=== PATIENT | male | born 1990 | race Asian ===

== ENCOUNTER 2016-06-23 18:49 | Emergency (ER) | payer OTHER ==
[2016-06-23] MEDS ORDERED: IPRATROPIUM/ALBUTEROL 0.5-2.5 MG/3 ML AMPUL NEB ONE (19:30)
--- NOTE | 2016-06-23 19:31 | ER Document Report ---
HPI - HPI Patient complains to provider of: cough Pain Level: 2 Context: Patient presents to the emergency department with complaints of productive cough chest tightness for the past 2-3 days. Reports history of asthma since he 18 months old. Reports he used two neb tx today without relief of symptoms. He reports no relief from the symptoms. Denies other symptoms such as fever vomiting diarrhea. Associated Symptoms: Productive cough Exacerbated by: Denies Relieved by: Denies - DERM Skin Color: Normal Past Medical History - Social History Smoking Status: Current Every Day Smoker Frequency of alcohol use: None Drug Abuse: None Family History: Reviewed & Not Pertinent Pulmonary Medical History: Reports: Hx Asthma Renal/ Medical History: Denies: Hx Peritoneal Dialysis Past Surgical History: Reports: Hx Testicular Surgery - Immunizations Hx Diphtheria, Pertussis, Tetanus Vaccination: Yes Vertical Provider Document - INFECTION CONTROL TRAVEL OUTSIDE OF THE [place] IN LAST 30 DAYS: No - RESPIRATORY O2 Sat by Pulse Oximetry: 100 Course - Vital Signs Vital signs: Temp Pulse Resp BP Pulse Ox 98.4 F 73 16 142/92 H 100 06/23/16 19:07 06/23/16 19:07 06/23/16 19:07 06/23/16 19:07 06/23/16 19:07
[2016-06-23] MEDS ORDERED: ALBUTEROL SULFATE 0.083% NEB 2.5 MG/3 ML AMPUL NEB ONE (20:28)
--- NOTE | 2016-06-23 21:23 | ER Document Report ---
ED General - General Chief Complaint: Cough Stated Complaint: COUGH Mode of Arrival: Ambulatory Information source: Patient Notes: 25-year-old male history of asthma presents with complaints of asthma exacerbation with green line productive sputum. Patient denies any fevers or chills notes symptoms have been ongoing for 3 days. Patient states that he ran out of his inhaler and his nebulizer. TRAVEL OUTSIDE OF THE [place] IN LAST 30 DAYS: No - HPI Onset: Other - 34 day duration Onset/Duration: Persistent Quality of pain: Pressure Severity: Mild Pain Level: 1 Associated symptoms: Productive cough, Shortness of breath Exacerbated by: Walking, Coughing Relieved by: Denies Similar symptoms previously: No Recently seen / treated by doctor: No - Related Data Allergies/Adverse Reactions: erythromycin lactobionate [From Erythrocin] Allergy (Verified 06/23/16 19:26) Past Medical History - Social History Smoking Status: Current Every Day Smoker Cigarette use (# per day): Yes Chew tobacco use (# tins/day): No Smoking Education Provided: Yes - Patient counselled regarding cessation for 4 minutes Frequency of alcohol use: None Drug Abuse: None Family History: Reviewed & Not Pertinent Pulmonary Medical History: Reports: Hx Asthma Renal/ Medical History: Denies: Hx Peritoneal Dialysis Past Surgical History: Reports: Hx Testicular Surgery - Immunizations Hx Diphtheria, Pertussis, Tetanus Vaccination: Yes Review of Systems - Review of Systems Notes: REVIEW OF SYSTEMS: CONSTITUTIONAL : Denies fever, chills, or sweats. Denies recent illness. EENT: Denies eye, ear, throat, or mouth pain or symptoms. Denies nasal or sinus congestion or discharge. Denies throat, tongue, or mouth swelling or difficulty swallowing. CARDIOVASCULAR: Denies chest pain. Denies palpitations or racing or irregular heart beat. Denies ankle edema. RESPIRATORY: Admits shortness breath difficult to breathing GASTROINTESTINAL: Denies abdominal pain or distention. Denies nausea, vomiting , or diarrhea. Denies blood in vomitus, stools, or per rectum. Denies black, tarry stools. Denies constipation. GENITOURINARY: Denies difficulty urinating, painful urination, burning, frequency, blood in urine, or discharge. MUSCULOSKELETAL: Denies back or neck pain or stiffness. Denies joint pain or swelling. SKIN: Denies rash, lesions or sores. HEMATOLOGIC : Denies easy bruising or bleeding. LYMPHATIC: Denies swollen, enlarged glands. NEUROLOGICAL: Denies confusion or altered mental status. Denies passing out or loss of consciousness. Denies dizziness or lightheadedness. Denies headache. Denies weakness or paralysis or loss of use of either side. Denies problems with gait or speech. Denies sensory loss, numbness, or tingling. Denies seizures. PSYCHIATRIC: Denies anxiety or stress. Denies depression, suicidal ideation, or homicidal ideation. ALL OTHER SYSTEMS REVIEWED AND NEGATIVE. Dictation was performed using [employer] voice recognition software PHYSICAL EXAMINATION: GENERAL: Well-appearing, well-nourished and in no acute distress. HEAD: Atraumatic, normocephalic. EYES: Pupils equal round and reactive to light, extraocular movements intact, sclera anicteric, conjunctiva are normal. ENT: Nares patent, oropharynx clear without exudates. Moist mucous membranes. NECK: Normal range of motion, supple without lymphadenopathy LUNGS: Breath sounds clear to auscultation bilaterally and equal. No wheezes rales or rhonchi. HEART: Regular rate and rhythm without murmurs ABDOMEN: Soft, nontender, nondistended abdomen. No guarding, no rebound. No masses appreciated. Musculoskeletal: Normal range of motion, no pitting or edema. No cyanosis. NEUROLOGICAL: Cranial nerves grossly intact. Normal speech, normal gait. Normal sensory, motor exams PSYCH: Normal mood, normal affect. SKIN: Warm, Dry, normal turgor, no rashes or lesions noted. Physical Exam - Vital signs Vitals: Temp Pulse Resp BP Pulse Ox 98.4 F 73 16 142/92 H 100 06/23/16 19:07 06/23/16 19:07 06/23/16 19:07 06/23/16 19:07 06/23/16 19:07 Course - Re-evaluation Re-evalutation: 06/23/16 21:22 Patient received 2 breathing treatments prior to my evaluation and is in no distress. I will discharge him home with nebulizer inhaler steroids and antibiotics. Patient otherwise looks well is in no distress After performing a Medical Screening Examination, I estimate there is LOW risk for ACUTE CORONARY SYNDROME, RESPIRATORY FAILURE, SEPSIS OR MENINGITIS, thus I consider the discharge disposition reasonable. The patient and I have discussed the diagnosis and risks, and we agree with discharging home with close follow- up. We also discussed returning to the Emergency Department immediately if new or worsening symptoms occur. We have discussed the symptoms which are most concerning (e.g., changing or worsening pain, trouble swallowing or breathing, neck stiffness, fever) that necessitate immediate return. - Vital Signs Vital signs: Temp Pulse Resp BP Pulse Ox 98.4 F 73 16 142/92 H 100 06/23/16 19:07 06/23/16 19:07 06/23/16 19:07 06/23/16 19:07 06/23/16 19:31 - Diagnostic Test Radiology reviewed: Image reviewed, Reports reviewed Discharge - Discharge Clinical Impression: Asthma exacerbation, Encounter for smoking cessation counseling, Productive cough Condition: Stable Disposition: HOME, SELF-CARE Instructions: Asthma ([facility]) Additional Instructions: You may only use duo nebs 3 times a day Return immediately if there are any other concerns Follow up with your physician tomorrow for further care or return to the ED IMMEDIATELY if symptoms worsen or new concerns occur Prescriptions: Doxycycline Hyclate 100 mg PO BID #14 capsule Ipratropium/Albuterol Sulfate [Duoneb 3 ml Ampul] 3 ml NEB RTQ2 #30 vial.neb Prednisone [Deltasone 20 mg Tablet] 3 tab PO DAILY 5 Days Forms: Smoking Cessation Education, Elevated Blood Pressure
[2016-06-23] MEDS ORDERED: ALBUTEROL SULFATE HFA (90 MCG/PUFF) 8 GM MDI (1 MDI/ER DISP) IH ONE (21:25)
[2016-06-23 23:05] VITALS: BP 150/94
--- NOTE | 2016-06-24 03:44 | ER Document Report ---
ED Medical Screen (RME) - General Chief Complaint: Cough Stated Complaint: COUGH Mode of Arrival: Ambulatory Notes: Patient presents to the emergency department with complaints of productive cough chest tightness for the past 2-3 days. Reports history of asthma since he 18 months old. Reports he used two neb tx today without relief of symptoms. He reports no relief from the symptoms. Denies other symptoms such as fever vomiting diarrhea. TRAVEL OUTSIDE OF THE [place] IN LAST 30 DAYS: No - Related Data Allergies/Adverse Reactions: erythromycin lactobionate [From Erythrocin] Allergy (Verified 06/23/16 19:26) Past Medical History - Social History Cigarette use (# per day): Yes Chew tobacco use (# tins/day): No Frequency of alcohol use: None Drug Abuse: None Pulmonary Medical History: Reports: Hx Asthma Renal/ Medical History: Denies: Hx Peritoneal Dialysis Past Surgical History: Reports: Hx Testicular Surgery - Immunizations Hx Diphtheria, Pertussis, Tetanus Vaccination: Yes Physical Exam - Vital signs Vitals: Temp Pulse Resp BP Pulse Ox 98.4 F 73 16 142/92 H 100 06/23/16 19:07 06/23/16 19:07 06/23/16 19:07 06/23/16 19:07 06/23/16 19:07 Course - Vital Signs Vital signs: Temp Pulse Resp BP Pulse Ox 97.9 F 88 18 150/94 H 98 06/23/16 21:48 06/23/16 21:48 06/23/16 21:48 06/23/16 21:48 06/23/16 21:48 Doctor's Discharge - Discharge Clinical Impression: Asthma exacerbation, Encounter for smoking cessation counseling, Productive cough Condition: Stable Disposition: HOME, SELF-CARE Instructions: Asthma ([facility]) Additional Instructions: You may only use duo nebs 3 times a day Return immediately if there are any other concerns Follow up with your physician tomorrow for further care or return to the ED IMMEDIATELY if symptoms worsen or new concerns occur Prescriptions: Doxycycline Hyclate 100 mg PO BID #14 capsule Ipratropium/Albuterol Sulfate [Duoneb 3 ml Ampul] 3 ml NEB RTQ2 #30 vial.neb Prednisone [Deltasone 20 mg Tablet] 3 tab PO DAILY 5 Days Forms: Elevated Blood Pressure, Smoking Cessation Education
== END 2016-06-23 21:48 | disposition home or self-care (01) ==
LOC: ER 18:49
DX: J45.901 Unspecified asthma with (acute) exacerbation (principal); R05 Cough; F17.210 Nicotine dependence, cigarettes, uncomplicated
CPT/HCPCS: 99406; 94640 ×2; 99283; 71020; J3490; J7620

== ENCOUNTER 2016-09-07 22:01 | Emergency (ER) | payer OTHER ==
[2016-09-07 23:16] LABS: ABSOLUTE EOSINOPHILS # (AUTO) 0.2 10^3/uL (0.0-0.6); ABSOLUTE LYMPHOCYTES (AUTO) 2.9 10^3/uL (0.5-4.7); ABSOLUTE MONOCYTES (AUTO) 0.9 10^3/uL (0.1-1.4); ABSOLUTE NEUT (AUTO) 5.6 10^3/uL (1.7-8.2); BASOPHILS % (AUTO) 0.3 % (0-2); HEMATOCRIT 45.1 % (37.9-51.0); HEMOGLOBIN 15.6 g/dL (13.5-17.0); HGB HCT DIFFERENCE 1.7; MEAN CORPUSCULAR HEMOGLOBIN 30.8 pg (27.0-33.4); MEAN CORPUSCULAR HGB CONC 34.4 g/dL (32.0-36.0); MEAN CORPUSCULAR VOLUME 89 fl (80-97); RED BLOOD COUNT 5.05 10^6/uL (4.35-5.55); RED CELL DISTRIBUTION WIDTH 12.8 % (11.5-14.0); SEGMENTED NEUTROPHILS % (AUTO) 58.7 % (42-78); WHITE BLOOD COUNT 9.5 10^3/uL (4.0-10.5)
[2016-09-07 23:20] LABS: AMORPHOUS SEDIMENT,URINE TRACE /HPF; APPEARANCE,URINE CLEAR; BILIRUBIN,URINE NEGATIVE (NEGATIVE); GLUCOSE, URINE NEGATIVE (NEGATIVE); KETONES,URINE NEGATIVE (NEGATIVE); LEUKOCYTE ESTERASE,URINE NEGATIVE (NEGATIVE); NITRITE,URINE NEGATIVE (NEGATIVE); PROTEIN,URINE NEGATIVE (NEGATIVE); URINE SPECIFIC GRAVITY 1.031
[2016-09-07 23:38] LABS: ALANINE AMINOTRANSFERASE 34 U/L (21-72); ALBUMIN 4.3 g/dL (3.5-5.0); ALKALINE PHOSPHATASE 58 U/L (38-126); ANION GAP 11 (5-19); ASPARTATE AMINO TRANSFERASE 18 U/L (17-59); BILIRUBIN,DIRECT 0.3 mg/dL (0.0-0.4); BILIRUBIN,TOTAL 0.6 mg/dL (0.2-1.3); BLOOD UREA NITROGEN 16 mg/dL (7-20); CALCIUM 9.9 mg/dL (8.4-10.2); CARBON DIOXIDE 26 mmol/L (22-30); CHLORIDE 104 mmol/L (98-107); CREATININE RESULT 1.14 mg/dL (0.52-1.25); GLUCOSE 80 mg/dL (75-110); LIPASE 45.6 U/L (23-300); POTASSIUM 4.2 mmol/L (3.6-5.0); SODIUM 141.2 mmol/L (137-145); TOTAL PROTEIN 6.9 g/dL (6.3-8.2)
[2016-09-08] MEDS ORDERED: IBUPROFEN 600 MG TABLET PO ONE (02:11)
[2016-09-08] MEDS ORDERED: HYDROCODONE/ACETAMINOPHEN 5-325 MG TABLET PO ONE (02:12)
--- NOTE | 2016-09-08 02:14 | ER Document Report ---
ED General - General Chief Complaint: Groin Pain Stated Complaint: UPPER GROIN PAIN,LOWER ABDOMINAL PAIN Time Seen by Provider: 09/08/16 01:52 Notes: Patient is a 25-year-old male who comes emergency department for chief complaint of pain in his left groin area. Symptoms have been present for 2 days and are worsening. He states he can barely move without the area hurting significantly. He cannot recall any injury, he denies noticing any swelling or redness to the area, he denies history of the same. He denies history of kidney stones, denies flank pain, abdominal pain, nausea/vomiting, fever or chills. TRAVEL OUTSIDE OF THE [place] IN LAST 30 DAYS: No - Related Data Allergies/Adverse Reactions: erythromycin lactobionate [From Erythrocin] Allergy (Verified 09/08/16 01:40) Past Medical History - General Information source: Patient - Social History Smoking Status: Current Every Day Smoker Chew tobacco use (# tins/day): No Frequency of alcohol use: Rare Drug Abuse: None Lives with: Family Family History: Reviewed & Not Pertinent Patient has suicidal ideation: No Patient has homicidal ideation: No - Past Medical History Cardiac Medical History: Reports: Hx Hypertension - diet controlled Pulmonary Medical History: Reports: Hx Asthma Renal/ Medical History: Denies: Hx Peritoneal Dialysis Past Surgical History: Reports: Hx Testicular Surgery - Immunizations Hx Diphtheria, Pertussis, Tetanus Vaccination: Yes Review of Systems - Review of Systems Constitutional: No symptoms reported EENT: No symptoms reported Cardiovascular: No symptoms reported Respiratory: No symptoms reported Gastrointestinal: See HPI Genitourinary: See HPI Male Genitourinary: See HPI Musculoskeletal: See HPI Skin: No symptoms reported Hematologic/Lymphatic: No symptoms reported Neurological/Psychological: No symptoms reported Physical Exam - Vital signs Vitals: Temp Pulse Resp BP Pulse Ox 98.1 F 79 20 150/73 H 99 09/07/16 22:38 09/07/16 22:38 09/07/16 22:38 09/07/16 22:38 09/07/16 22:38 Interpretation: Normal - General General appearance: Appears well, Alert In distress: None - Patient is in no distress, he has some pain with movement - HEENT Head: Normocephalic, Atraumatic Eyes: Normal Conjunctiva: Normal Extraocular movements intact: Yes Eyelashes: Normal Pupils: PERRL - Respiratory Respiratory status: No respiratory distress Chest status: Nontender Breath sounds: Normal Chest palpation: Normal - Cardiovascular Rhythm: Regular Heart sounds: Normal auscultation Murmur: No - Abdominal Inspection: Normal Distension: No distension Bowel sounds: Normal Tenderness: Nontender. No: Tender, Guarding - Abdomen is completely nontender Organomegaly: No organomegaly - Genitourinary Inspection: Normal Tenderness: Nontender Cremasteric reflex: Normal. No: Right reflex absent, Left reflex absent Scrotum: Normal, Swelling. No: Redness, Hot to touch - Back Back: Normal, Nontender - Extremities General upper extremity: Normal inspection, Nontender, Normal color, Normal ROM , Normal temperature General lower extremity: Other - There is tenderness in the left inguinal area extending towards the proximal thigh, no hernia, no erythema, no lymphadenopathy , no induration, no other abnormality noted. Tenderness with performing lifting motion of the leg, range of motion is intact although with pain, normal distal neurovascular exam - Neurological Neuro grossly intact: Yes Cognition: Normal Orientation: AAOx4 [place] Coma Scale Eye Opening: Spontaneous [place] Coma Scale Verbal: Oriented [place] Coma Scale Motor: Obeys Commands [place] Coma Scale Total: 15 Speech: Normal Motor strength normal: LUE, RUE, LLE, RLE Sensory: Normal - Psychological Associated symptoms: Normal affect, Normal mood - Skin Skin Temperature: Warm Skin Moisture: Dry Skin Color: Normal Course - Re-evaluation Re-evalutation: Hip x-ray performed and is negative. Labs from triage reviewed and show no concerning abnormalities. No evidence of hernia, infection, lymphadenopathy. Examination is consistent with a musculoskeletal source of patient's symptoms. Treating accordingly, discussed follow-up, referral, return precautions. Patient and state understanding and agreement. - Vital Signs Vital signs: Temp Pulse Resp BP Pulse Ox 97.8 F 63 18 146/86 H 97 09/08/16 03:42 09/08/16 03:42 09/08/16 03:42 09/08/16 03:42 09/08/16 03:42 - Laboratory Result Diagrams: 09/07/16 22:55 09/07/16 22:55 Laboratory results interpreted by me: 09/07/16 23:00 Urine Urobilinogen 4.0 H Discharge - Discharge Clinical Impression: Left groin pain Condition: Stable Disposition: HOME, SELF-CARE Additional Instructions: Examination is most consistent with pain of the hip with thigh strain. Take the prescribed medications as directed, apply ice to the area, probably pill up under the leg at night, but pillows to sit on to straighten out the leg when sitting. Follow-up with orthopedics if symptoms continue. Return to emergency department for any concerning or worsening symptoms including severe pain, swelling, redness, fever, vomiting or any other concerning symptoms. Prescriptions: Methocarbamol [Robaxin 500 mg Tablet] 500 mg PO QID PRN #20 tablet PRN Reason: Naproxen 500 mg PO BID #20 tablet Forms: Return to Work Referrals: FERDINAND THOMAS MD [ACTIVE STAFF] - Follow up as needed
--- NOTE | 2016-09-08 03:01 | RADIOLOGY REPORT (SQ) ---
EXAM DESCRIPTION: HIP LEFT AP/LATERAL COMPLETED DATE/TIME: 09/08/2016 2:46 am REASON FOR STUDY: left hip pain COMPARISON: None. NUMBER OF VIEWS: Two views. TECHNIQUE: AP pelvis and additional frog-leg view of the left hip. LIMITATIONS: None. FINDINGS: MINERALIZATION: Normal. LEFT HIP: No fracture or dislocation. No worrisome bone lesions. RIGHT HIP: No fracture or dislocation. No worrisome bone lesions. PUBIS AND ISCHIUM: No fracture. PELVIS: No fracture. SACRUM: No fracture or dislocation. No worrisome bone lesions. LOWER LUMBAR SPINE: No fracture or dislocation. No worrisome bone lesions. No significant disc disea se. SOFT TISSUES: No findings. OTHER: No other significant finding. IMPRESSION: NEGATIVE STUDY OF THE LEFT HIP AND PELVIS. NO RADIOGRAPHIC EVIDENCE OF ACUTE INJURY. TECHNICAL DOCUMENTATION: JOB ID: [id number] [employer]- All Rights Reserved
[2016-09-08] MEDS ORDERED: HYDROCODONE/ACETAMINOPHEN 5-325 MG 6 TAB/DSPK PO PRN (03:23)
[2016-09-08 03:49] VITALS: BP 146/86
== END 2016-09-08 03:47 | disposition home or self-care (01) ==
LOC: ER 22:01
DX: R10.32 Left lower quadrant pain (principal); F17.200 Nicotine dependence, unspecified, uncomplicated; I10 Essential (primary) hypertension
CPT/HCPCS: 36415; 80053; 81001; 83690; 85025; 99284

== ENCOUNTER 2016-12-09 14:34 | Emergency (ER) | payer OTHER ==
[2016-12-09 15:02] VITALS: BP 156/102
--- NOTE | 2016-12-09 15:04 | ER Document Report ---
ED Burn/Smoke/Toxic Fumes - General Chief Complaint: Burn Stated Complaint: RIGHT HAND BURN Time Seen by Provider: 12/09/16 15:00 Notes: The patient is a 26-year-old male who presents with right hand pain after he burned it on grease [facility] today while he was working. He rinsed it under cold water and is now noticing some blistering. He denies numbness, tingling, open wounds or difficulty bending his fingers. TRAVEL OUTSIDE OF THE [place] IN LAST 30 DAYS: No - Related Data Allergies/Adverse Reactions: erythromycin lactobionate [From Erythrocin] Allergy (Verified 12/09/16 14:59) Home Medications: Current Home Medications No Home Medications 12/09/16 [History] Past Medical History - General Information source: Patient - Social History Smoking Status: Current Every Day Smoker Chew tobacco use (# tins/day): No Frequency of alcohol use: Social Family History: Reviewed & Not Pertinent Patient has suicidal ideation: No Patient has homicidal ideation: No - Past Medical History Cardiac Medical History: Reports: Hx Hypertension - diet controlled Pulmonary Medical History: Reports: Hx Asthma Renal/ Medical History: Denies: Hx Peritoneal Dialysis Past Surgical History: Reports: Hx Testicular Surgery - Immunizations Hx Diphtheria, Pertussis, Tetanus Vaccination: Yes Review of Systems - Review of Systems Notes: REVIEW OF SYSTEMS: CONSTITUTIONAL: -fevers, -chills EENT: -eye pain, -difficulty swallowing, -nasal congestion CARDIOVASCULAR:-chest pain, -syncope. RESPIRATORY: -cough, -SOB GASTROINTESTINAL: -abdominal pain, - nausea, -vomiting, -diarrhea GENITOURINARY: -dysuria, -hematuria MUSCULOSKELETAL: -back pain, -neck pain SKIN: +right hand young HEMATOLOGIC: -easy bruising or bleeding. LYMPHATIC: -swollen, enlarged glands. NEUROLOGICAL: -altered mental status or loss of consciousness, -headache, - neurologic symptoms PSYCHIATRIC: -anxiety, -depression. ALL OTHER SYSTEMS REVIEWED AND NEGATIVE. Physical Exam - Vital signs Vitals: Temp Pulse Resp BP Pulse Ox 97.2 F 74 18 156/102 H 99 12/09/16 14:59 12/09/16 14:59 12/09/16 14:59 12/09/16 14:59 12/09/16 14:59 - Notes Notes: PHYSICAL EXAMINATION: GENERAL: Well-appearing, well-nourished and in no acute distress. HEAD: Atraumatic, normocephalic. EYES: Pupils equal round and reactive to light, extraocular movements intact, sclera anicteric, conjunctiva are normal. ENT: nares patent, oropharynx clear without exudates. Moist mucous membranes. NECK: Normal range of motion, supple without lymphadenopathy LUNGS: Breath sounds clear to auscultation bilaterally and equal. No wheezes rales or rhonchi. HEART: Regular rate and rhythm without murmurs ABDOMEN: Soft, nontender, normoactive bowel sounds. No guarding, no rebound. No masses appreciated. EXTREMITIES: Normal range of motion, no pitting or edema. No cyanosis. NEUROLOGICAL: Cranial nerves grossly intact. Normal speech, normal gait. Normal sensory and motor exams. PSYCH: Normal mood, normal affect. SKIN: Erythema and small areas of blisters over dorsal aspect of right hand, no circumferential young, brisk capillary refill Course - Re-evaluation Re-evalutation: Pt has superficial young to dorsal surface of hand. No circumferential young. Instructed him to begin bacitracin and aloe vera to help with his young. No indication for emergent transfer to burn center at this time. Patient given strict return precautions and he understands. - Vital Signs Vital signs: Temp Pulse Resp BP Pulse Ox 97.2 F 74 18 156/102 H 99 12/09/16 14:59 12/09/16 14:59 12/09/16 14:59 12/09/16 14:59 12/09/16 14:59 Discharge - Discharge Clinical Impression: Burn of hand Qualifiers: Encounter type: initial encounter Burn of hand location: dorsum Laterality: right Burn degree: superficial (1st degree) Qualified Code(s): T23.161A - Burn of first degree of back of right hand, initial encounter Condition: Stable Disposition: HOME, SELF-CARE Additional Instructions: Young The seriousness of a burn is not always obvious at first. Delayed tissue damage and secondary infection may occur despite proper treatment. Proper care is very important. A burn that is third-degree may need skin grafting. Most young, however, are simply protected with dressings until healed. Keep the burn clean. If the dressing gets wet, remove it and blot the wound dry, then apply a fresh dressing. Dressings should be changed at least once daily. Soaks to remove crusting are usually started in about two days. Young in certain areas require stretching to prevent disabling tightness. Your doctor will advise you about this. For pain control, you may frequently apply a hand towel that has been dipped in water with ice cubes. Do not apply ice directly to the burned areas. If any signs of infection occur (swelling, redness, increasing tenderness, red streaks, tender lumps in the armpit or groin above the burn, or fever), contact the doctor immediately. Forms: Elevated Blood Pressure
[2016-12-09] MEDS ORDERED: IBUPROFEN 600 MG TABLET PO ONE (15:07)
[2016-12-09] MEDS ORDERED: BACITRACIN ZINC OINTMENT 15 GM TP ONE (15:07)
[2016-12-09] MEDS ORDERED: HYDROCODONE/ACETAMINOPHEN 5-325 MG TABLET PO ONE (15:07)
== END 2016-12-09 15:17 | disposition home or self-care (01) ==
LOC: ER 14:34
DX: T23.161A Burn of first degree of back of right hand, initial encounter (principal); X10.2XXA Contact with fats and cooking oils, initial encounter; Y93.G3 Activity, cooking and baking; Y99.0 Civilian activity done for income or pay; F17.200 Nicotine dependence, unspecified, uncomplicated; I10 Essential (primary) hypertension; J45.909 Unspecified asthma, uncomplicated; Z88.1 Allergy status to other antibiotic agents
CPT/HCPCS: 99283; J3490

== ENCOUNTER 2017-07-12 13:43 | Emergency (ER) | payer SELFPAY ==
--- NOTE | 2017-07-12 14:14 | RADIOLOGY REPORT (SQ) ---
EXAM DESCRIPTION: CHEST PA/LAT COMPLETED DATE/TIME: 07/12/2017 2:07 pm REASON FOR STUDY: cough, fever COMPARISON: None. EXAM PARAMETERS: NUMBER OF VIEWS: two views TECHNIQUE: Digital Frontal and Lateral radiographic views of the chest acquired. RADIATION DOSE: NA LIMITATIONS: none FINDINGS: LUNGS AND PLEURA: No opacities, masses or pneumothorax. No pleural effusion. MEDIASTINUM AND HILAR STRUCTURES: No masses or contour abnormalities. HEART AND VASCULAR STRUCTURES: Heart normal size. No evidence for failure. BONES: No acute findings. HARDWARE: None in the chest. OTHER: No other significant finding. IMPRESSION: NO SIGNIFICANT RADIOGRAPHIC FINDING IN THE CHEST. TECHNICAL DOCUMENTATION: JOB ID: [id number] [employer]- All Rights Reserved Reading location - IP/workstation name: [email or web address]
[2017-07-12] MEDS ORDERED: ACETAMINOPHEN 325 MG TABLET PO ONE (15:02)
[2017-07-12] MEDS ORDERED: PREDNISONE 20 MG TABLET PO ONE (15:02)
[2017-07-12] MEDS ORDERED: IPRATROPIUM/ALBUTEROL 0.5-2.5 MG/3 ML AMPUL NEB ONE (15:02)
[2017-07-12] MEDS ORDERED: KETOROLAC TROMETHAMINE INJ/PF 30 MG/1 ML SDV IM ONE (15:02)
--- NOTE | 2017-07-12 15:05 | ER Document Report ---
ED Respiratory Problem - General Chief Complaint: Cough Stated Complaint: FEVER,BACK PAIN Time Seen by Provider: 07/12/17 14:35 Mode of Arrival: Ambulatory Information source: Patient TRAVEL OUTSIDE OF THE [place] IN LAST 30 DAYS: No - HPI Patient complains to provider of: Cough Onset: Yesterday Notes: Patient is here with complaints of fever, cough, body aches and shortness of breath. The patient has a history of asthma. Was sick with very similar's illness last week. He denies any nausea, vomiting, diarrhea. No rash. No leg pain or leg swelling, no history of DVT or PE, no cancer. No chest pain. No abdominal pain. No rash. No numbness, tingling, weakness. No other complaints at this time. - Related Data Allergies/Adverse Reactions: erythromycin lactobionate [From Erythrocin] Allergy (Verified 07/12/17 13:45) Past Medical History - Social History Smoking Status: Unknown if Ever Smoked Family History: Reviewed & Not Pertinent - Past Medical History Cardiac Medical History: Reports: Hx Hypertension - diet controlled Pulmonary Medical History: Reports: Hx Asthma Renal/ Medical History: Denies: Hx Peritoneal Dialysis Past Surgical History: Reports: Hx Testicular Surgery - Immunizations Hx Diphtheria, Pertussis, Tetanus Vaccination: Yes Review of Systems - Review of Systems -: Yes All other systems reviewed and negative Physical Exam - Vital signs Vitals: Temp Pulse Resp BP Pulse Ox 100.9 F H 101 H 18 155/84 H 96 07/12/17 13:48 07/12/17 13:48 07/12/17 13:48 07/12/17 13:48 07/12/17 13:48 - Notes Notes: GENERAL: alert, cooperative, nontoxic, no distress. HEAD: normocephalic, atraumatic EYES: conjunctiva pink without discharge, no external redness or swelling. EARS: no external swelling, no external redness, no mastoid redness, swelling, tenderness. Ear canals are clear without swelling or drainage. TMs pearly jaffe , no redness, no bulging, normal landmarks, no perforation. NOSE: atraumatic, no external swelling. clear rhinorrhea noted. MOUTH/THROAT: mucous membranes moist and pink, posterior pharynx without erythema, swelling, exudate. No trismus or drooling. NECK: soft, supple, full range of motion, no meningismus. CHEST: no distress, lungs clear and equal throughout. Scattered expiratory wheezing throughout. Good air movement. CARDIAC: regular rate and rhythm, no murmur, normal capillary refill, normal pulses. No peripheral edema noted. BACK: full range of motion, no CVA tenderness. EXTREMITIES: full range of motion of all extremities. No redness, no swelling. NEURO: alert and oriented A&O3, no focal deficits, full range of motion of all extremities. PYSCH: appropriate mood, affect. Patient is cooperative. SKIN: pink, warm, dry, no rash. Course - Re-evaluation Re-evalutation: 07/12/17 16:15 The patient is nontoxic appearing with stable vitals. Patient has a history of asthma. Is here with flulike symptoms which started yesterday. His had very similar symptoms last week and is now better. He is complaining of cough, sore throat, body aches, shortness of breath, fever. On initial exam he was noted to have scattered wheezes. After breathing treatment he states he feels significant better no longer feel short of breath. His lungs are now clear. He is given Toradol and Tylenol here in the emergency department. He does not appear to be septic. Chest x-ray shows no pneumonia. Patient likely has influenza, but I do not have influenza test to confirm this. Due to the fact that his symptoms just started within the last 24 hours and he has a history of asthma, I have offered Tamiflu for him. We discussed the risks and the benefits of the medication, the patient declines at this time. At this point the patient will be discharged home with a prescription for prednisone. He has albuterol at home. He is instructed to take Tylenol Motrin as needed for pain. Rest. Drink plenty of fluids. Follow-up with his doctor if not better in the next week, sooner for worsening pain, fever, difficulty breathing or swallowing, or for any further concerns. The patient is noted to have elevated blood pressure during today's emergency department visit. The patient was informed of this finding. The patient was instructed that this may be related to pre-hypertension and requires further evaluation with a primary care provider. The patient has no hypertensive symptoms at this time. The patient's emergency department workup and current diagnosis were explained to the patient and or family. Follow-up instructions were provided. Medications if prescribed were discussed. Instructions for when to return to the emergency department including specific worrisome symptoms were discussed with the patient and/or family. - Vital Signs Vital signs: Temp Pulse Resp BP Pulse Ox 100.9 F H 101 H 18 155/84 H 96 07/12/17 13:48 07/12/17 13:48 07/12/17 13:48 07/12/17 13:48 07/12/17 13:48 - Diagnostic Test Radiology reviewed: Image reviewed, Reports reviewed - Negative chest x-ray Discharge - Discharge Clinical Impression: Influenza Asthma exacerbation Qualifiers: Asthma severity: mild Asthma persistence: unspecified Qualified Code(s): J45.901 - Unspecified asthma with (acute) exacerbation Condition: Stable Disposition: HOME, SELF-CARE Instructions: Influenza ([facility]) [id number], Asthma ([facility]) Additional Instructions: Take medications as prescribed. Tylenol and Motrin as needed for pain and fever. Follow-up with your doctor if not better in 1 week, sooner for worsening symptoms, high fever, significant trouble breathing, persistent vomiting, or for any further concerns. Your blood pressure was elevated during today's visit. Have this rechecked with your doctor. Prescriptions: Prednisone [Deltasone 20 mg Tablet] 3 tab PO DAILY 5 Days tablet Forms: Elevated Blood Pressure, Smoking Cessation Education Referrals: [facility] [Provider Group] - Follow up as needed
[2017-07-12 16:41] VITALS: BP 144/81
== END 2017-07-12 16:44 | disposition home or self-care (01) ==
LOC: ER 13:43
DX: J11.1 Influenza due to unidentified influenza virus with other respiratory manifestations (principal); R05 Cough; R50.9 Fever, unspecified; M54.9 Dorsalgia, unspecified; M79.1 Myalgia; R06.02 Shortness of breath; J45.909 Unspecified asthma, uncomplicated; I10 Essential (primary) hypertension
CPT/HCPCS: 71046; 94640; 96372; 99283

== ENCOUNTER 2018-08-06 23:46 | Emergency (ER) | payer SELFPAY ==
[2018-08-07] MEDS ORDERED: ACETAMINOPHEN 325 MG TABLET PO ONE (01:11)
[2018-08-07] MEDS ORDERED: CYCLOBENZAPRINE HCL 10 MG TABLET PO ONE (01:11)
[2018-08-07] MEDS ORDERED: KETOROLAC TROMETHAMINE 60 MG/2 ML SDV IM ONE (01:11)
[2018-08-07] MEDS ORDERED: PREDNISONE 20 MG TABLET PO ONE (01:12)
--- NOTE | 2018-08-07 01:31 | ER Document Report ---
HPI - HPI Patient complains to provider of: back pain Time Seen by Provider: 08/07/18 01:11 Pain Level: 4 Context: 27-year-old otherwise healthy male presents to department for left thoracic back pain since this morning. He states that yesterday at work he was lifting 20 or 3055 pound boxes but there was otherwise no inciting injury. He denies fever, chills, urinary retention or bowel incontinence, saddle paresthesia, weakness, numbness, tingling in any of his extremities, or any other problems. Past Medical History - Social History Smoking Status: Current Every Day Smoker Chew tobacco use (# tins/day): No Frequency of alcohol use: Rare Drug Abuse: Marijuana Family History: Reviewed & Not Pertinent Patient has suicidal ideation: No Patient has homicidal ideation: No - Past Medical History Cardiac Medical History: Reports: Hx Hypertension - diet controlled Pulmonary Medical History: Reports: Hx Asthma Renal/ Medical History: Denies: Hx Peritoneal Dialysis Past Surgical History: Reports: Hx Testicular Surgery - Immunizations Hx Diphtheria, Pertussis, Tetanus Vaccination: Yes Vertical Provider Document - CONSTITUTIONAL Notes: PHYSICAL EXAMINATION: Reviewed vital signs and charting by RN GENERAL: Alert, interacts well. No acute distress. HEAD: Normocephalic, atraumatic. EYES: Pupils equal and round. Extraocular movements intact. ENT: Oral mucosa moist, tongue midline. NECK: Full range of motion. Supple. Trachea midline. ABDOMEN: soft, non-tender. Non-distended. Bowel sounds present. no McBurney's point tenderness, no Gonzalez sign. EXTREMITIES: Moves all 4 extremities spontaneously. No edema, No cyanosis. Normal distal neurovascular exam BACK: Inflammation left side thoracic back just lateral to the spine with tenderness to palpation at the level of approximately T9 or T10 when palpating the rhomboids. Patient with full range of motion. NEUROLOGIC: Oriented and appropriate. Normal speech. PSYCH: Normal affect, normal mood. SKIN: Warm, dry, normal turgor. No rashes or lesions noted. - INFECTION CONTROL TRAVEL OUTSIDE OF THE [place] IN LAST 30 DAYS: No Course - Re-evaluation Re-evalutation: 08/07/18 01:35 Overall well-appearing. No inciting injury but most likely due to the repetitive movements of lifting heavy boxes at work yesterday. I am, Flexeril, Tylenol, and a dose of prednisone. I am giving him a prescription for a burst dose of prednisone for 5 days, Flexeril to help him sleep at night. Patient is stable for discharge and is happy with plan. - Vital Signs Vital signs: Temp Pulse Resp BP Pulse Ox 98.1 F 58 L 19 147/90 H 100 08/06/18 23:50 08/06/18 23:50 08/06/18 23:50 08/06/18 23:50 08/06/18 23:50 Discharge - Discharge Clinical Impression: Back injury Qualifiers: Encounter type: initial encounter Qualified Code(s): S39.92XA - Unspecified injury of lower back, initial encounter Condition: Good Disposition: HOME, SELF-CARE Instructions: Warm Packs ([facility]) Additional Instructions: You have been seen in the Emergency Department (ED) today for back pain. Your exam did not shown any acute abnormalities and you are likely suffering from muscle strain, but there is no treatment that will fix your symptoms at this time. Please continue to take naproxen 500 mg in the morning and the evening. You should also purchase a local lidocaine cream such as "aspercreme with lidocaine" and use per bottle instructions to the affected area. Apply heat to the area as often as you are able. Continue to keep active and avoid prolonged periods of bed rest. Please follow up with your doctor as soon as possible regarding today's ED visit and your back pain. Return to the ED for worsening back pain, fever, weakness or numbness of either leg, or if you develop either (1) an inability to urinate or have bowel movements, or (2) loss of your ability to control your bathroom functions (if you start having "accidents"), or if you develop other new symptoms that concern you.concern you. Prescriptions: Cyclobenzaprine HCl [Flexeril 10 mg Tablet] 10 mg PO TIDP PRN #15 tab PRN Reason: Prednisone [Deltasone 20 mg Tablet] 60 mg PO DAILY #15 tablet
[2018-08-07 01:55] VITALS: BP 135/82
== END 2018-08-07 01:55 | disposition home or self-care (01) ==
LOC: ER 23:46
DX: S39.92XA Unspecified injury of lower back, initial encounter (principal); X58.XXXA Exposure to other specified factors, initial encounter; M54.6 Pain in thoracic spine; F17.200 Nicotine dependence, unspecified, uncomplicated; I10 Essential (primary) hypertension; J45.909 Unspecified asthma, uncomplicated
CPT/HCPCS: 99283; J1885; J7512